=== PATIENT | female | born 1975 | race Caucasian/White ===

== ENCOUNTER 2020-01-18 00:37 | Inpatient (IN) | payer OTHER ==
[2020-01-18] VITALS (7 sets, daily range): BP systolic 118–142; BP diastolic 57–78; Ht 152.4 cm; Wt 100.0 kg
[~2020-01-18] VITALS: Ht 152.4 cm; Wt 100.0 kg
[2020-01-18] MEDS ORDERED: GLUCOPHAGE500 MG PO (00:49)
[2020-01-18] MEDS ORDERED: PERCOCET 7.5/321 TAB PO (00:49)
[2020-01-18] MEDS ORDERED: ZANAFLEX4 MG PO (00:50)
[2020-01-18] MEDS ORDERED: LYRICA100 MG PO (00:50)
[2020-01-18] MEDS ORDERED: CYMBALTA30 MG PO (00:50)
[2020-01-18] MEDS ORDERED: PINDOLOL5 MG PO (00:51)
[2020-01-18 01:25] LABS: HEMATOCRIT 36.5 % (36.0-48.0); MCH 30.2 pg (26.0-34.0); MCHC 32.9 g/dL (31.0-37.0); MCV 91.7 fL (80.0-100.0); MEAN PLATELET VOLUME 9.2 fL (7.4-10.4); PLATELET COUNT 433 10x3/uL (130-400); RBC 3.98 10x6/uL (4.00-5.40)
[2020-01-18 01:32] LABS: CALC OSMOLALITY 278 mosm/kg (275-300); CALCIUM 8.8 mg/dL (8.5-10.1); CARBON DIOXIDE 29.2 mmol/L (21.0-32.0); CHLORIDE - SERUM 101 mmol/L (98-107); CREATININE - SERUM 0.9 mg/dL (0.6-1.3); GLUCOSE 113 mg/dL (74-106); POTASSIUM - SERUM 4.1 mmol/L (3.5-5.1); SODIUM 138 mmol/L (136-145); UREA NITROGEN 18 mg/dL (7-18); eGFR NON AFRICAN AMERICAN 72 mL/min (90-120)
[2020-01-18 01:41] LABS: INR 1.06 (0.85-1.17); LYMPHOCYTES 8 % (15-50); MONOCYTES 1 % (2-11); NEUTROPHILS 87 % (40-80); PROTIME 13.8 SECONDS (11.6-15.0)
[2020-01-18 01:42] LABS: APTT 32.6 SECONDS (22.8-39.4); PLATELET ESTIMATE INCREASED
[2020-01-18 01:49] LABS: ALBUMIN 2.4 g/dL (3.4-5.0); ALKALINE PHOSPHATASE 88 U/L (30-120); ALT (SGPT) 50 U/L (10-68); BILIRUBIN - TOTAL 0.37 mg/dL (0.2-1.3); CKMB 0.3 U/L (0.0-3.6); CREATINE KINASE 47 UL (21-215); PRO BNP 109 pg/mL (0-125); PROTEIN - SERUM 7.4 g/dL (6.4-8.2); TROPONIN-I < 0.017 ng/mL (0.000-0.060)
--- NOTE | 2020-01-18 03:40 | NUR ---
PT TO ROOM 2132 VIA STRETCHER ACCOMPANIED BY HOSPITAL STAFF.
--- NOTE | 2020-01-18 04:35 | NUR ---
PT ORIENTED TO ROOM, EDUCATED USE OF CALL LIGHT FOR ASSISTANCE. PLACED ON HF NC 7L, SPO2 93%. LIPS CYANOTIC, NO FURTHER S/S OF DISTRESS OBSERVED. PROVIDED WATER PER REQUEST. WILL CPOC.
--- NOTE | 2020-01-18 19:00 | NUR ---
PT RECEIVED, IN BED WITH O2 OFF. O2 71% ON RA. PUT PTS O2 BACK ON AND EDUCATED PT ON KEEPING IT ON. 92% ON 4L HF. NOTIFIED RT WHO ALSO EDUCATED PT ON THE IMPORTANCE OF KEEPING IT ON. GAVE PTS SPOUSE UPDATE AND ANSWERED ALL QUESTIONS AT THIS TIME. NO FURTHER NEEDS EXPRESSED. WILL CPOC.
--- NOTE | 2020-01-19 01:19 | NUR ---
RECEIVED NEW ORDERS FOR FFP, WAS NOTIFIED BY LAB THE EARLIEST THIS COULD BE OBTAINED WOULD BE IN THE MORNING. WILL CPOC.
[2020-01-19 09:14] VITALS: BP 141/90
--- NOTE | 2020-01-19 09:20 | NUR ---
PT TOOK AM MEDS WITHOUT DIFFICULTY, PT DENIES ANY OTHER NEEDS AT THIS TIME, WILL MONITOR
[2020-01-19 11:35] VITALS: BP 146/92
[2020-01-19 12:32] LABS: BASOPHILS 1.2 % (0-2); EOSINOPHILS 0.1 % (0-7); HEMATOCRIT 37.9 % (36.0-48.0); HEMOGLOBIN 12.2 g/dL (12-16); MCHC 32.2 g/dL (31.0-37.0); MCV 93.3 fL (80.0-100.0); MEAN PLATELET VOLUME 9.6 fL (7.4-10.4); MONOCYTES 7.3 % (2-11); NEUTROPHILS 68.4 % (40-80); RBC 4.06 10x6/uL (4.00-5.40); RDW 14.1 % (11.5-14.5); WBC 10.8 10x3/uL (4.8-10.8)
[2020-01-19 12:35] LABS: ALBUMIN 2.9 g/dL (3.4-5.0); ALKALINE PHOSPHATASE 86 U/L (30-120); ALT (SGPT) 46 U/L (10-68); BILIRUBIN - TOTAL 0.33 mg/dL (0.2-1.3); CALC OSMOLALITY 283 mosm/kg (275-300); CALCIUM 8.9 mg/dL (8.5-10.1); CHLORIDE - SERUM 103 mmol/L (98-107); CREATININE - SERUM 0.8 mg/dL (0.6-1.3); GLUCOSE 154 mg/dL (74-106); MAGNESIUM - SERUM 2.6 mg/dL (1.8-2.4); POTASSIUM - SERUM 4.5 mmol/L (3.5-5.1); SODIUM 140 mmol/L (136-145); UREA NITROGEN 18 mg/dL (7-18); eGFR NON AFRICAN AMERICAN 82 mL/min (90-120)
[2020-01-19 12:41] LABS: PLATELET COUNT 644 10x3/uL (130-400)
--- NOTE | 2020-01-19 17:43 | NUR ---
GAVE PT OXY 5MG PO FOR PAIN , RATES PAIN 6/10 ALL OVER, PT VOICES HER PAIN IS CHRONIC
[2020-01-19 17:45] VITALS: BP 130/79
--- NOTE | 2020-01-19 19:45 | NUR ---
PATIENT IS RESTING IN BED. SHE IS ALERT AND ORIENTED. SHE IS ANXIOUS ABOUT NOT GETTING HER PAIN MEDICATIONS ON TIME. SHE IS ON 5 LITERS NASAL CANNULA. WE WILL CONTINUE TO MONITOR HER RESPIRATORY STATUS.
[2020-01-20] VITALS (7 sets, daily range): BP systolic 130–141; BP diastolic 60–92
--- NOTE | 2020-01-20 03:14 | NUR ---
PATIENT IS SLEEPING IN BED. SHE RECEIVED CONVALESCIENT PLASMA. SHE HAS ALSO RECEIVED BOTH ANTIBIOTICS. WE WILL CONTINUE TO MONITOR HER RESPIRATORY STATUS.
[2020-01-20 07:11] LABS: ALBUMIN 2.9 g/dL (3.4-5.0); ANION GAP 9.1 mmol/L (8-16); BILIRUBIN - DIRECT 0.07 mg/dL (0.00-0.30); BILIRUBIN - INDIRECT 0.27 mg/dL (0.00-1.00); BILIRUBIN - TOTAL 0.34 mg/dL (0.2-1.3); CALCIUM 9.3 mg/dL (8.5-10.1); CARBON DIOXIDE 28.9 mmol/L (21.0-32.0); CREATININE - SERUM 0.9 mg/dL (0.6-1.3); MAGNESIUM - SERUM 2.6 mg/dL (1.8-2.4); PROTEIN - SERUM 7.4 g/dL (6.4-8.2)
[2020-01-20 07:14] LABS: HEMATOCRIT 37.4 % (36.0-48.0); MCH 29.7 pg (26.0-34.0); MCHC 32.1 g/dL (31.0-37.0); MCV 92.6 fL (80.0-100.0); MEAN PLATELET VOLUME 9.6 fL (7.4-10.4); PLATELET COUNT 681 10x3/uL (130-400); RBC 4.04 10x6/uL (4.00-5.40); WBC 11.1 10x3/uL (4.8-10.8)
[2020-01-20 11:40] LABS: LYMPHOCYTES 19 % (15-50); MONOCYTES 21 % (2-11); NEUTROPHILS 56 % (40-80); PLATELET ESTIMATE INCREASED; ROULEAUX 1+
--- NOTE | 2020-01-20 21:45 | NUR ---
PATIENT IS COMPLAINING OF PAIN. SHE RECEIVED PRN PERCOCET FOR BACK PAIN. SHE IS ON 2 LITERS NASAL CANNULA HI MANPREET. WE WILL CONTINUE TO MONITOR HER RESPIRATORY STATUS.
[2020-01-21 04:05] VITALS: BP 144/83
[2020-01-21 07:29] LABS: BASOPHILS 0.4 % (0-2); EOSINOPHILS 0 % (0-7); HEMATOCRIT 38.5 % (36.0-48.0); HEMOGLOBIN 12.3 g/dL (12-16); IMMATURE GRANULOCYTES 12.4 % (0-5); LYMPHOCYTES 11.8 % (15-50); MCH 29.8 pg (26.0-34.0); MCHC 31.9 g/dL (31.0-37.0); MCV 93.2 fL (80.0-100.0); MEAN PLATELET VOLUME 9.4 fL (7.4-10.4); MONOCYTES 10.4 % (2-11); PLATELET COUNT 639 10x3/uL (130-400); RBC 4.13 10x6/uL (4.00-5.40); RDW 14.1 % (11.5-14.5); WBC 10.2 10x3/uL (4.8-10.8)
[2020-01-21 07:57] LABS: ALBUMIN 3.1 g/dL (3.4-5.0); ALKALINE PHOSPHATASE 68 U/L (30-120); ALT (SGPT) 30 U/L (10-68); BILIRUBIN - DIRECT 0.08 mg/dL (0.00-0.30); BILIRUBIN - INDIRECT 0.19 mg/dL (0.00-1.00); BILIRUBIN - TOTAL 0.27 mg/dL (0.2-1.3); CALC OSMOLALITY 281 mosm/kg (275-300); CALCIUM 9.3 mg/dL (8.5-10.1); CARBON DIOXIDE 27.3 mmol/L (21.0-32.0); CHLORIDE - SERUM 107 mmol/L (98-107); CREATININE - SERUM 0.8 mg/dL (0.6-1.3); GLUCOSE 137 mg/dL (74-106); MAGNESIUM - SERUM 2.6 mg/dL (1.8-2.4); POTASSIUM - SERUM 4.3 mmol/L (3.5-5.1); PROTEIN - SERUM 7.3 g/dL (6.4-8.2); SODIUM 140 mmol/L (136-145); UREA NITROGEN 15 mg/dL (7-18); eGFR NON AFRICAN AMERICAN 82 mL/min (90-120)
[2020-01-21 08:31] VITALS: BP 139/75
[2020-01-21] MEDS ORDERED: DECADRON4 MG PO (10:12)
[2020-01-21] MEDS ORDERED: VENTOLIN HFA [SP8 GM INH (10:13)
[2020-01-21] MEDS ORDERED: AZITHROMYCIN500 MG PO (10:13)
--- NOTE | 2020-01-21 12:18 | NUR ---
DISCHARGE INSTRUCTIONS GIVEN AND PT DISPLAYS UNDERSTANDING. IV TAKEN OUT TIP INTACT. ASSISSTED PATIENT TO THE FRONT DOOR WHERE RIDE WAS WAITNIG
--- NOTE | 2020-01-21 14:28 | MORECARE ---
CASE MANAGEMENT DISCHARGE SUMMARY PATIENT: SHAVON PEGUERO UNIT: [id number] ADM DATE: 01/18/20 AGE: 44 : 75 SEX: F ROOM/BED: D.2132 AUTHOR: TORI PRAKASH PHYSICIAN: REFERRING PHYSICIAN: MALIHA SALAS MD DATE OF SERVICE: 01/21/20 Discharge Plan Patient Name: SHAVON PEGUERO Facility: [facility]:[place] : 1975 Planned Disposition: Home Anticipated Discharge Date: 01/21/20 Discharge Date: 01/21/2020 Expected LOS: 3 Initial Reviewer: [email or web address] Initial Review Date: 01/18/2020 Generated: 01/21/20 3:27 pm Patient Name: SHAVON PEGUERO Page [id number] at 1428 All edits/amendments must be made on the electronic document DICTATION DATE: 01/21/20 1427 OREMAN: DAHIANA 01/21/20 1427 RPT#: [id number] DC DATE:01/21/20 STATUS: DIS IN [facility] [address] [place] [address] END OF REPORT
== END 2020-01-21 12:19 | disposition home or self-care (01) | DRG 177 ==
LOC: D.ER 00:37 → D.M2 01:29
PROVIDERS: Family Medicine; ADMIT Family Medicine; ATTEND Family Medicine
PROC: XW033E5 Introduction of Remdesivir Anti-infective into Peripheral Vein, Percutaneous Approach, New Technology Group 5 (ICD-10-PCS; principal; 2020-01-20)
DX: U07.1 COVID-19 (principal); J12.89 Other viral pneumonia; J96.01 Acute respiratory failure with hypoxia; J44.0 Chronic obstructive pulmonary disease with (acute) lower respiratory infection; J44.1 Chronic obstructive pulmonary disease with (acute) exacerbation; F17.203 Nicotine dependence unspecified, with withdrawal; E11.65 Type 2 diabetes mellitus with hyperglycemia

== ENCOUNTER → 2020-07-29 10:19 | Outpatient (CLI) | payer OTHER ==
[~2020-07-29 10:19] MED LIST: AZITHROMYCIN500 MG PO; CYMBALTA30 MG PO; DECADRON4 MG PO; GLUCOPHAGE500 MG PO; LYRICA100 MG PO; PERCOCET 7.5/321 TAB PO; PINDOLOL5 MG PO; VENTOLIN HFA [SP8 GM INH; ZANAFLEX4 MG PO
== END | disposition home or self-care (01) ==
LOC: D.MRI 10:19
PROVIDERS: ATTEND Clinical Nurse Specialist Family Health
DX: M25.512 Pain in left shoulder (principal)

== ENCOUNTER 2020-08-13 05:45 | Day surgery (SDC) | payer OTHER ==
[2020-08-11 10:52] LABS: HEMATOCRIT 42.2 % (36.0-48.0); HEMOGLOBIN 13.9 g/dL (12-16); LYMPHOCYTE ABS# 1.69 10x3/uL (1.18-3.74); MCH 30.8 pg (26.0-34.0); MCHC 32.9 g/dL (31.0-37.0); MCV 93.6 fL (80.0-100.0); NEUTROPHIL ABS# 4.44 10x3/uL (1.56-6.13); RBC 4.51 10x6/uL (4.00-5.40); RDW 13.2 % (11.5-14.5)
[2020-08-11 10:57] LABS: PLATELET COUNT 351 10x3/uL (130-400)
[2020-08-11 10:58] LABS: ANION GAP 10.5 mmol/L (8-16); CALCIUM 9.6 mg/dL (8.5-10.1); POTASSIUM - SERUM 4.5 mmol/L (3.5-5.1)
[2020-08-11 14:26] LABS: LYMPHOCYTES 19 % (15-50); MONOCYTES 13 % (2-11); NEUTROPHILS 64 % (40-80); PLATELET ESTIMATE NORMAL
[~2020-08-13] VITALS: Ht 160 cm; Wt 90.7 kg
[~2020-08-13 05:45] MED LIST changes: +OXYCONTIN80 MG PO; +PERCOCET 10-321 EAC1 PO; +TOPAMAX50 MG PO
[2020-08-13 06:27] VITALS: BP 115/79; Ht 160 cm; Wt 90.7 kg
[2020-08-13] MEDS ORDERED: DILAUDID4 MG PO (06:57)
--- NOTE | 2020-08-13 10:20 | NUR ---
PIV DC'D WITH TIP INTACT, DISCHARGE INSTRUCTIONS REVIEWED WITH PATIENT AND SPOUSE, ASSISTED PATIENT TO APPLY ARM SLING
--- NOTE | 2020-08-13 15:33 | OP ---
PATIENT NAME: SHAVON GAXIOLA MEDICAL RECORD: [id number] :75 LOCATION:[facility] ADMISSION DATE: SURGEON: BRANDIN ALDRIDGE DO DATE OF OPERATION: 08/13/2020 PROCEDURE PERFORMED: Left shoulder arthroscopy with rotator cuff repair using Regeneten biceps tenodesis, subacromial decompression, distal clavicle excision and labral debridement. 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 INDICATIONS: Ms. Gaxiola is a 44-year-old female who has had left shoulder pain for quite some time. She had an MRI showing the above findings. She was tired of dealing with the pain. As we tried all nonsurgical options, she wanted something done surgically. I informed her of the risks and benefits of the procedure including fracture, bleeding, damage to nerves or vessels in the area, continued pain, loss of motion of the shoulder, frozen shoulder syndrome, retear of the rotator cuff, biceps tendon cramping need for further surgery, failure of implants and she was aware of all that and signed the consent. SURGEON: Brandin Aldridge DO DESCRIPTION OF PROCEDURE: The patient was given a block by anesthesia in the preoperative area and taken to the operative suite, laid in the right lateral decubitus position, left shoulder up. She was sedated and LMA was placed. She was given 900 mg of clindamycin. A timeout was performed and everyone was in agreeance with the correct side, site, patient and procedure. I then began by inserting an 18-gauge spinal needle into the shoulder joint itself and inflating it with 60 mL of normal saline, through the 18-gauge spinal needle. I then removed that and established a posterior portal with an 11-blade scalpel, trocar was entered in the joint. I then entered the camera and established an anterior portal using 18-gauge spinal needle and 11-blade scalpel, trocar entered in. I then inspected the shoulder, saw the grade IV chondromalacia of the posterior half really of the humeral head. The fraying of the biceps tendon, subscapularis tendon was in good repair and the labrum was torn anterior to posterior quite extensively. I then brought in a burner and did a biceps tenotomy and inspected the rotator cuff further. She had a large full thickness greater than 50% tear in the anterior fibers of the supraspinatus. I then went to the subacromial space after debriding the labrum with a burner and established a lateral portal with an 18-gauge spinal needle and 11-blade scalpel, trocar entered in. I then did a subacromial decompression, removed the bursa and did an acromioplasty removing the spur on the acromion and then through the anterior portal did a distal clavicle excision, opened the AC joint to approximately 7-mm. I then inspected the rotator cuff from the bursal side and did not see any tears and then went back into the articular side and marked it with an 18-gauge spinal needle through the lateral portal. I then opened up the lateral portal with a 15-blade scalpel, made blunt dissection down with the [employer]'s to the tear site that was marked. I then cleaned off the rotator cuff tendon and then put a Regeneten implant on and stapled into place. I then OPERATIVE REPORT [id number] SHAVON GAXIOLA went to the anterior humerus, made a small incision, made careful dissection down to the long head of the biceps tendon, pulled it out through the incision, whipstitched it and put a unicortical hole and put a 2.9 JuggerLoc anchor in with a whipstitch, put it through the tendon, tied the tendon to the whipstitch, cinched it down, cut the loop and used a free needle to go through the tendon and tied it down to the anchor. I then cut the excess tendon and sutured, irrigated. Juana Amaral, certified medical aide then closed the sites with 2-0 Vicryl in an inverted interrupted fashion on the open sites and 4-0 Monocryl ran on the skin and then 4-0 Monocryl in inverted interrupted fashion on the portal sites and put Dermabond glue on all of them, covered with Telfa and Tegaderm. She was then awakened and taken to recovery in stable condition, put in a sling and went to recovery in stable condition. BLOOD LOSS: Minimal. COMPLICATIONS: None. TRANSINT:[id number] Voice Confirmation ID: [id number] DOCUMENT ID: [id number] BRANDIN ALDRIDGE DO at 1533 CC: [id number] DICTATION DATE: 08/13/20920 SCAN COORDINATOR: 08/13/20 1430 [facility] [address] [id number]
== END 2020-08-13 10:28 | disposition home or self-care (01) ==
LOC: D.OPS 05:45
PROVIDERS: Anesthesiology; ATTEND Orthopaedic Surgery
DX: M25.512 Pain in left shoulder (principal); M75.22 Bicipital tendinitis, left shoulder; M75.42 Impingement syndrome of left shoulder; M75.102 Unspecified rotator cuff tear or rupture of left shoulder, not specified as traumatic

== ENCOUNTER → 2020-11-04 08:39 | Outpatient (CLI) | payer OTHER ==
[2020-08-13 06:27] VITALS: BMI 35.5
[~2020-11-04 08:39] MED LIST changes: +DILAUDID4 MG PO
== END | disposition home or self-care (01) ==
LOC: D.MRI 08:39
PROVIDERS: ATTEND Orthopaedic Surgery
DX: M75.31 Calcific tendinitis of right shoulder (principal)